=== PATIENT | female | born 1950 | race Caucasian/White ===

== ENCOUNTER → 2019-12-19 | Outpatient (CLI) | payer MEDICARE ==
--- NOTE | 2019-12-19 15:11 | Diagnostic Imaging Report ---
Examination: MRI SPINE LUMBAR WO CONTRAST History: Low back pain with left hip pain for many years. Comparison studies: None Technique: Sagittal, coronal and axial T2 , sagittal T1 and STIR; axial spin density oblique. Findings: Number of lumbar vertebral bodies: Five. Alignment: Normal lordosis. No scoliosis. Soft tissues: No T2 hyperintense inflammatory changes. Posterior paraspinal soft tissues and muscles: No abnormality. Lower thoracic cord: Normal in signal and morphology. The tip of the conus is at T12-L1. Cauda equina: No masses. No arachnoiditis. Vertebrae: No fractures, infection or neoplasm. Degenerative changes: T11-T12: Central and left central and subarticular disc protrusion causes mild canal stenosis. No foraminal narrowing. T12-L1 through L2-L3: No abnormalities. L3-L4: Asymmetric to the right disc bulge and bilateral facet arthropathy result in mild right neural foraminal narrowing. No left foraminal or canal stenosis. L4-L5: Mild retrolisthesis. Asymmetric to the left disc bulge and bilateral facet arthropathy result in moderate left foraminal narrowing. No right foraminal or canal stenosis. L5-S1: Grade I/II anterolisthesis due to bilateral pars defects. Uncovering of a diffuse disc bulge and bilateral facet arthropathy result in severe right and moderate left foraminal narrowing. No canal stenosis. IMPRESSION: Degenerative change at T11-T12 and from L3-L4 through L5-S1 with mild canal stenosis at T11-T12 and severe right and moderate left foraminal narrowing at L5-S1. Moderate left foraminal narrowing at L4-L5. Bilateral grade I/II isthmic spondylolisthesis at L5-S1. Mild retrolisthesis at L4-L5. Signed by: Dr. Nubia Cisneros M.D. on 12/19/2019 3:08 PM
--- NOTE | 2019-12-19 16:51 | Diagnostic Imaging Report ---
MRI of the left hip without contrast. History: Hip pain. Decreased range of motion. Low back pain. Sciatica. Decreased range of motion Technique: Multiplanar multisequence MRI of the hip without contrast. Comparison: None. Findings: Please see report from MRI of the lumbar spine from the same day for further details. No acute fracture, subluxation or avascular necrosis about the left hip. Scattered degenerative changes are seen. No osseous erosion. The urinary bladder and remainder of the visualized pelvic structures are grossly unremarkable. Mild degenerative arthrosis in the left hip joint with thinning of the articular cartilage at the superior lateral acetabulum and adjacent femoral head. Degeneration and fraying of the labrum. Physiologic amount of fluid in the hip joint. The remainder of the visualized ligaments and tendons about the hip are intact. No evidence to suggest greater trochanteric bursitis. The visualized muscles are normal in size, signal intensity and morphology. The visualized neurovascular bundles are intact. Impression: Mild degenerative arthrosis in the left hip joint. No acute fracture, subluxation or avascular necrosis. Signed by: Dr. Albert Rueda M.D. on 12/19/2019 4:48 PM
== END ==
LOC: MRI 12:33
PROVIDERS: ATTEND Internal Medicine
DX: M54.32 Sciatica, left side (principal); M25.552 Pain in left hip
CPT/HCPCS: 72148

== ENCOUNTER 2020-09-17 10:27 | Inpatient (IN) | payer MEDICARE ==
[~2020-09-17] VITALS: Ht 152.4 cm; Wt 60.8 kg
[2020-09-17] MEDS ORDERED: CEFEPIME 1GM/NS 0.9% 50 ML 50 ML IV STA (10:37)
[2020-09-17 11:06] LABS: BASOPHILS % 0.4 % (0.0-1.0); EOSINOPHILS # (AUTO) 0.2 (0.0-0.4); EOSINOPHILS % 1.7 % (0.0-6.0); HEMATOCRIT 40.4 % (34.2-44.1); HEMOGLOBIN 12.9 g/dL (12.0-16.0); LYMPHOCYTES # (AUTO) 1.3 (1.0-3.2); LYMPHOCYTES % 12.2 % (18.0-39.1); MEAN CORPUSCULAR HEMOGLOBIN 30.7 pg (28-32); MEAN CORPUSCULAR HGB CONC 31.9 g/dL (31-35); MEAN CORPUSCULAR VOLUME 96.2 fL (81-99); MONOCYTES # (AUTO) 0.7 (0.2-0.8); MONOCYTES % 6.4 % (4.4-11.3); NEUTROPHILS # (AUTO) 8.2 (2.1-6.9); NEUTROPHILS % 78.9 % (38.7-80.0); PLATELET COUNT 296 x10e3/uL (140-360); RED CELL DISTRIBUTION WIDTH 13.8 % (11.7-14.4)
[2020-09-17] MEDS ORDERED: VANCOMYCIN 1GM/NS 250 ML 250 ML IV ONE (11:30)
[2020-09-17 11:33] LABS: ALANINE AMINOTRANSFERASE 15 IU/L (0-55); ALBUMIN 3.7 g/dL (3.5-5.0); ALBUMIN/GLOBULIN RATIO 0.8 (0.8-2.0); ALKALINE PHOSPHATASE 70 IU/L (40-150); ANION GAP 18.9 mmol/L (8-16); BLOOD UREA NITROGEN 9 mg/dL (7-26); BUN/CREATININE RATIO 14 (6-25); CALCIUM 9.4 mg/dL (8.4-10.2); CARBON DIOXIDE 25 mmol/L (22-29); CHLORIDE 101 mmol/L (98-107); CREATININE, SERUM 0.63 mg/dL (0.57-1.11); EST GLOMERULAR FILTRATION RATE > 60 ML/MIN (60-); GLUCOSE 91 mg/dL (74-118); POTASSIUM 3.9 mmol/L (3.5-5.1); SODIUM 141 mmol/L (136-145)
[2020-09-17] MEDS ORDERED: ETOMIDATE 2 MG/ML 10 ML INJ IV STA (15:09)
[2020-09-17] MEDS ORDERED: SUCCINYLCHOLINE 200 MG/10 ML SYR IV STA (15:09)
[2020-09-17] MEDS ORDERED: NOREPINEPHRINE INJ 4MG/4ML 8 MG in DEXTROSE 5% 250ML 250 ML IV SCH (15:15)
[2020-09-17] MEDS ORDERED: CEFEPIME 1GM/NS 0.9% 50 ML 50 ML IV ONE (17:30)
[2020-09-17 17:33] VITALS: BP 139/76
[2020-09-17] MEDS ORDERED: SODIUM CHLORIDE 0.9% 250ML 250 ML ONE (17:53)
[2020-09-17 17:54] VITALS: BP 139/76
[2020-09-17 19:53] VITALS: BP 136/70
[2020-09-17 20:00] VITALS: BP 136/70
[2020-09-17] MEDS ORDERED: LEVOTHYROXINE88 MCG PO (22:50)
[2020-09-17] MEDS ORDERED: ATORVASTATIN CA20 MG PO (22:50)
[2020-09-18] VITALS (7 sets, daily range): BP systolic 123–146; BP diastolic 17–79
[2020-09-18] MEDS: CEFEPIME 1GM/NS 0.9% 50 ML 50 ML IV SCH ×2 (00:05→09:00)
[2020-09-18] MEDS ORDERED: VANCOMYCIN 1GM/NS 250 ML 250 ML IV SCH (02:00)
[2020-09-18] MEDS ORDERED: ACETAMINOPHEN 325 MG TAB PO PRN (04:45)
[2020-09-18 05:33] LABS: BASOPHILS # (AUTO) 0.1 (0.0-0.1); BASOPHILS % 0.7 % (0.0-1.0); EOSINOPHILS # (AUTO) 0.2 (0.0-0.4); EOSINOPHILS % 2.1 % (0.0-6.0); HEMATOCRIT 36.8 % (34.2-44.1); HEMOGLOBIN 11.9 g/dL (12.0-16.0); LYMPHOCYTES # (AUTO) 1.4 (1.0-3.2); LYMPHOCYTES % 16.6 % (18.0-39.1); MEAN CORPUSCULAR HEMOGLOBIN 30.7 pg (28-32); MEAN CORPUSCULAR HGB CONC 32.3 g/dL (31-35); MEAN CORPUSCULAR VOLUME 94.8 fL (81-99); MONOCYTES # (AUTO) 0.7 (0.2-0.8); MONOCYTES % 8.3 % (4.4-11.3); NEUTROPHILS # (AUTO) 5.9 (2.1-6.9); NEUTROPHILS % 71.9 % (38.7-80.0); PLATELET COUNT 317 x10e3/uL (140-360); RED BLOOD COUNT 3.88 x10e6/uL (3.6-5.1); RED CELL DISTRIBUTION WIDTH 13.9 % (11.7-14.4)
[2020-09-18 05:52] LABS: ALANINE AMINOTRANSFERASE 14 IU/L (0-55); ALBUMIN 3.3 g/dL (3.5-5.0); ALBUMIN/GLOBULIN RATIO 0.8 (0.8-2.0); ALKALINE PHOSPHATASE 64 IU/L (40-150); ANION GAP 16.9 mmol/L (8-16); BLOOD UREA NITROGEN 12 mg/dL (7-26); BUN/CREATININE RATIO 20 (6-25); CALCIUM 9.2 mg/dL (8.4-10.2); CARBON DIOXIDE 25 mmol/L (22-29); CHLORIDE 103 mmol/L (98-107); CREATININE, SERUM 0.61 mg/dL (0.57-1.11); EST GLOMERULAR FILTRATION RATE > 60 ML/MIN (60-); GLUCOSE 92 mg/dL (74-118); POTASSIUM 3.9 mmol/L (3.5-5.1); SODIUM 141 mmol/L (136-145)
[2020-09-18] MEDS ORDERED: SODIUM CHLORIDE 0.9% 50ML 50 ML ONE (07:13)
[2020-09-18] MEDS ORDERED: IOPAMIDOL 370 MG/ML 200 ML INFUS..BTL INJ ONE (07:13)
[2020-09-18] MEDS: LEVOTHYROXINE SODIUM 88 MCG TAB PO SCH (09:00)
[2020-09-18] MEDS: CLINDAMYCIN 600MG / 50ML 50 ML IV SCH (17:47)
[2020-09-18] MEDS: ATORVASTATIN 20 MG TAB PO SCH (20:05)
[2020-09-19] VITALS (8 sets, daily range): BP systolic 142–151; BP diastolic 75–90
[2020-09-19] MEDS: CLINDAMYCIN 600MG / 50ML 50 ML IV SCH ×5 (01:25→23:31)
[2020-09-19] MEDS: LEVOTHYROXINE SODIUM 88 MCG TAB PO SCH (08:42)
[2020-09-19] MEDS ORDERED: ONDANSETRON HCL INJ 2MG/ML 2ML 2 MG/ML VIAL IV PRN (16:30)
[2020-09-19] MEDS ORDERED: SALINE 0.65% NAS SOLN 1 SPRAY BTL PRN (16:30)
[2020-09-19] MEDS: PANTOPRAZOLE SOD 40 MG TABEC PO SCH (17:10)
[2020-09-19] MEDS: ATORVASTATIN 20 MG TAB PO SCH (20:12)
[2020-09-19] MEDS: SODIUM CHLORIDE 0.9% 1000ML 1,000 ML IV SCH (23:31)
[2020-09-20] VITALS (8 sets, daily range): BP systolic 124–139; BP diastolic 51–82
[2020-09-20] MEDS: CLINDAMYCIN 600MG / 50ML 50 ML IV SCH ×2 (05:27→11:10)
[2020-09-20] MEDS: SODIUM CHLORIDE 0.9% 1000ML 1,000 ML IV SCH ×2 (10:25→14:45)
[2020-09-20] MEDS ORDERED: CEFAZOLIN SOD 1 GM/NS 50ML 100 ML IV ONE (11:53)
[2020-09-20] MEDS ORDERED: FENTANYL CITRATE/PF 100MCG/2 ML INJ ONE ×2 (12:34→14:21)
[2020-09-20] MEDS ORDERED: MIDAZOLAM HCL 2 MG/2 ML VIAL ONE (12:34)
[2020-09-20] MEDS ORDERED: DEXAMETHASONE SOD PHOS INJ 4 MG/ML VIAL ONE (13:30)
[2020-09-20] MEDS ORDERED: ONDANSETRON HCL INJ 2MG/ML 2ML 2 MG/ML VIAL ONE (13:30)
[2020-09-20] MEDS ORDERED: SEVOFLURANE INHAL SOLN 250 ML PEN BTL ONE (13:30)
[2020-09-20] MEDS ORDERED: GLYCOPYRROLATE INJ 0.2 MG/ML VIAL ONE (13:30)
[2020-09-20] MEDS ORDERED: PROPOFOL IV EMULSION 10 MG/ML 20 ML VIAL ONE (13:30)
[2020-09-20] MEDS ORDERED: EPHEDRINE SULFATE INJ 50 MG/ML VIAL ONE (13:30)
[2020-09-20] MEDS ORDERED: LIDOCAINE HCL 2% LOCAL INJ 5 ML SDV VIAL INJ ONE (13:30)
[2020-09-20] MEDS ORDERED: ONDANSETRON HCL INJ 2MG/ML 2ML 2 MG/ML VIAL IV PRN (14:00)
[2020-09-20] MEDS: PANTOPRAZOLE SOD 40 MG TABEC PO SCH (16:41)
[2020-09-20] MEDS: CLINDAMYCIN PHOS 900MG/ 50ML 50 ML IV SCH (18:44)
[2020-09-20] MEDS: ATORVASTATIN 20 MG TAB PO SCH (22:06)
[2020-09-21] VITALS (8 sets, daily range): BP systolic 134–169; BP diastolic 78–95
[2020-09-21] MEDS: SODIUM CHLORIDE 0.9% 1000ML 1,000 ML IV SCH ×3 (00:16→20:00)
[2020-09-21] MEDS: HYDROCODONE/APAP 5MG-325MG TAB PO PRN ×4 (01:49→21:38)
[2020-09-21] MEDS: CLINDAMYCIN PHOS 900MG/ 50ML 50 ML IV SCH ×2 (03:20→12:30)
[2020-09-21] MEDS: LEVOTHYROXINE SODIUM 88 MCG TAB PO SCH (06:16)
[2020-09-21] MEDS: PANTOPRAZOLE SOD 40 MG TABEC PO SCH (08:11)
[2020-09-21] MEDS: VANCOMYCIN 1GM/NS 250 ML 250 ML IV SCH (14:13)
[2020-09-21] MEDS: ATORVASTATIN 20 MG TAB PO SCH (21:35)
[2020-09-22] VITALS (8 sets, daily range): BP systolic 130–158; BP diastolic 70–98
[2020-09-22] MEDS: VANCOMYCIN 1GM/NS 250 ML 250 ML IV SCH (01:25)
[2020-09-22 05:51] LABS: BASOPHILS # (AUTO) 0.1 (0.0-0.1); BASOPHILS % 1.3 % (0.0-1.0); EOSINOPHILS # (AUTO) 0.4 (0.0-0.4); EOSINOPHILS % 4.8 % (0.0-6.0); HEMATOCRIT 37.4 % (34.2-44.1); HEMOGLOBIN 12.3 g/dL (12.0-16.0); LYMPHOCYTES # (AUTO) 1.9 (1.0-3.2); LYMPHOCYTES % 23.5 % (18.0-39.1); MEAN CORPUSCULAR HEMOGLOBIN 30.7 pg (28-32); MEAN CORPUSCULAR HGB CONC 32.9 g/dL (31-35); MEAN CORPUSCULAR VOLUME 93.3 fL (81-99); MONOCYTES # (AUTO) 0.8 (0.2-0.8); MONOCYTES % 9.5 % (4.4-11.3); NEUTROPHILS # (AUTO) 4.8 (2.1-6.9); PLATELET COUNT 378 x10e3/uL (140-360); RED BLOOD COUNT 4.01 x10e6/uL (3.6-5.1); RED CELL DISTRIBUTION WIDTH 13.9 % (11.7-14.4)
[2020-09-22] MEDS: SODIUM CHLORIDE 0.9% 1000ML 1,000 ML IV SCH ×2 (06:00→16:00)
[2020-09-22] MEDS: LEVOTHYROXINE SODIUM 88 MCG TAB PO SCH (06:06)
[2020-09-22 06:12] LABS: ALANINE AMINOTRANSFERASE 13 IU/L (0-55); ALBUMIN 3.2 g/dL (3.5-5.0); ALBUMIN/GLOBULIN RATIO 0.9 (0.8-2.0); ALKALINE PHOSPHATASE 61 IU/L (40-150); ANION GAP 16.2 mmol/L (8-16); BLOOD UREA NITROGEN 13 mg/dL (7-26); BUN/CREATININE RATIO 21 (6-25); CALCIUM 8.8 mg/dL (8.4-10.2); CARBON DIOXIDE 26 mmol/L (22-29); CHLORIDE 102 mmol/L (98-107); CREATININE, SERUM 0.62 mg/dL (0.57-1.11); EST GLOMERULAR FILTRATION RATE > 60 ML/MIN (60-); GLUCOSE 90 mg/dL (74-118); MAGNESIUM 1.9 MG/DL (1.3-2.1); POTASSIUM 4.2 mmol/L (3.5-5.1); SODIUM 140 mmol/L (136-145)
[2020-09-22] MEDS: HYDROCODONE/APAP 5MG-325MG TAB PO PRN (06:15)
[2020-09-22] MEDS: PANTOPRAZOLE SOD 40 MG TABEC PO SCH (08:28)
[2020-09-22] MEDS ORDERED: DOCUSATE SODIUM 100 MG CAP PO PRN (08:45)
[2020-09-22] MEDS: CEFTRIAXONE SOD 2 GM/NS 100 ML 100 ML IV SCH (14:05)
[2020-09-22] MEDS: ATORVASTATIN 20 MG TAB PO SCH (21:44)
[2020-09-23] VITALS: BP 145/85
[2020-09-23] MEDS: SODIUM CHLORIDE 0.9% 1000ML 1,000 ML IV SCH ×2 (02:00→12:00)
[2020-09-23 04:00] VITALS: BP 126/84
[2020-09-23] MEDS: LEVOTHYROXINE SODIUM 88 MCG TAB PO SCH (06:11)
[2020-09-23 07:50] VITALS: BP 143/77
[2020-09-23 08:06] VITALS: BP 143/77
[2020-09-23] MEDS: PANTOPRAZOLE SOD 40 MG TABEC PO SCH (09:50)
[2020-09-23] MEDS: CEFTRIAXONE SOD 2 GM/NS 100 ML 100 ML IV SCH (09:50)
[2020-09-23 11:16] VITALS: BP 136/76
[2020-09-23 15:30] VITALS: BP 136/73
== END 2020-09-23 19:03 | disposition home health service (06) | DRG 501 ==
LOC: ER 10:40 → ERHOLD 11:08 → MED/SURG2 17:12
PROVIDERS: ADMIT Internal Medicine; ATTEND Internal Medicine
PROC: 0JDH0ZZ Extraction of Left Lower Arm Subcutaneous Tissue and Fascia, Open Approach (ICD-10-PCS; principal; 2020-09-17)
PROC: 02HV33Z Insertion of Infusion Device into Superior Vena Cava, Percutaneous Approach (ICD-10-PCS; 2020-09-22)
PROC: B548ZZA Ultrasonography of Superior Vena Cava, Guidance (ICD-10-PCS; 2020-09-22)
DX: M71.122 Other infective bursitis, left elbow (principal); L03.114 Cellulitis of left upper limb; I10 Essential (primary) hypertension; Z82.49 Family history of ischemic heart disease and other diseases of the circulatory system; E78.00 Pure hypercholesterolemia, unspecified; E03.9 Hypothyroidism, unspecified; Z20.822 Contact with and (suspected) exposure to COVID-19
CPT/HCPCS: 36415; 36569; 71045; 80053; 80202; 83605; 83735; 85025; 87040; 87071; 87075; 87205; 93971; 99284; J0690; J0692; J0696; J1100; J2001; J2250; J2405; J3010; J3370; J7030; J7050; Q9967; U0002

== ENCOUNTER → 2022-09-27 | Outpatient (CLI) | payer MEDICARE ==
[~2022-09-27] MED LIST: ATORVASTATIN CA20 MG PO; LEVOTHYROXINE88 MCG PO
== END ==
LOC: MRI 07:33
PROVIDERS: ATTEND Internal Medicine
DX: G45.4 Transient global amnesia (principal)
CPT/HCPCS: 70544; 70547; 70551

== ENCOUNTER → 2022-11-07 | Outpatient (CLI) | payer MEDICARE | LOC: MRI 09:48 | PROVIDERS: ATTEND Internal Medicine | DX: M54.32 Sciatica, left side (principal) | CPT/HCPCS: 72148 ==

== ENCOUNTER → 2024-03-27 | Outpatient (REF) | payer MEDICARE ==
[~2024-03-27] MED LIST changes: +IRON PO; +MULTI-VITAMIN1 EACH PO; +POTASSIUM99 M1 PO; +SELENIUM200 MC2 PO; +ZINC PO; +[UNRECOGNIZED DRUG - OTHER]
== END ==
LOC: MRI 12:42
PROVIDERS: ATTEND Internal Medicine
DX: M54.32 Sciatica, left side (principal); M79.662 Pain in left lower leg
CPT/HCPCS: 72148